=== PATIENT | male | born 1940 | race Caucasian/White ===

== ENCOUNTER 2024-08-31 09:21 | Inpatient (IN) | payer OTHER, SELFPAY ==
[2024-08-31] VITALS (21 sets, daily range): BP systolic 115–167; BP diastolic 48–120; BMI 31.4
--- NOTE | 2024-08-31 07:02 | ED.GENMED ---
History of Present Illness
General
Chief Complaint: Dizziness
Time Seen by Provider: 08/31/24 07:02
History of Present Illness
History of Present Illness:
TIME OF INITIAL ENCOUNTER: 7:08 AM
HPI: The patient went to bed at 12:15 AM this morning. At 5:15 AM, the patient got up to go to the bathroom, he never went to the bathroom but had acute dizziness. This feels similar to the time that he had an acute stroke in 2021. Records show
that he had a cerebellar stroke discharged on baby aspirin and Brilinta at that time. He has no significant headache. He did vomit this morning.
EXAM:
GENERAL: The patient appears uncomfortable and primarily keeps eyes closed
HEENT: Moist oral mucosa
CARDIOVASCULAR: No murmurs, normal heart rate, regular rhythm, No chest wall tenderness
PULMONARY: No respiratory distress, breath sounds are clear and equal
ABDOMEN: Soft with no peritoneal signs, no tenderness
NEUROLOGIC: Excellent strength all extremities, questionable impaired finger-nose on the left
PSYCHIATRIC: Appropriate mental status, normal insight and judgement
EXTREMITIES: Nontender, no edema, moves all extremities equally
SKIN: No rash, no lesions
NUMBER AND COMPLEXITY OF PROBLEMS ADDRESSED AT THE ENCOUNTER
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
� Acute Exacerbation and/or Progression of Chronic Illness: This is an acute problem
� Differential Diagnosis includes: Cerebellar CVA, BPPV, nonspecific vertigo
AMOUNT AND/OR COMPLEXITY OF DATA TO BE REVIEWED AND ANALYZED
� I performed an independent evaluation of and my interpretation is:
EKG: Sinus 79, bifascicular block, left axis deviation
CT: CT head noncontrast shows encephalomalacia of the cerebellum but no acute abnormality, CTA shows more diminutive size of the basilar arteries
X-rays:
Laboratory Studies: Bicarb 19, labs otherwise unremarkable
Other:
� Review of other/old records: I reviewed records. The patient was admitted in February 2022 with an acute cerebellar CVA�discharged on Brilinta and baby aspirin
� Clinical information was obtained by an independent historian: I spoke to EMS prior to arrival and at bedside
� Prescriptions/Medications Considered but not given:
� Further testing considered but not performed:
RISK OF COMPLICATIONS AND/OR MORBIDITY OR MORTALITY OF PATIENT MANAGEMENT
� Social determinants of health affecting care: Lives at home
� Discussion with other providers: Notified Dr. Hill upon patient arrival as we activated stroke alert. No indication for TNK at this time. Hospitalist, Dr. Hebert for admission.
� Escalation of care including admission/observation vs risk of discharge considered: As patient has acute symptoms and history of similar symptoms related to cerebellar CVA, stroke alert was called at 7:10 AM.
ANY OTHER UPDATES:
Dr. Jameson evaluated the patient in the ER. He suspects that his ocular MG may be contributing factor and he is overdue for his IVIG�he states he is going to order IVIG for the patient. Regardless, the patient does not appear well enough to return
home. He is found to be hypothermic and occasionally desats in the emergency department.
Past History
Past History
ED Past Medical History: CVA, HTN and Other (Myasthenia gravis)
ED Past Surgical History: Tonsilectomy and Other (Hernia repair)
Social History
Tobacco: Non-smoker
Phy Exam
Physical Exam
Physical Exam:
See HPI
Sepsis
Sepsis Screening
Sepsis Assessment: Sepsis Ruled Out
Sepsis Screen
Sepsis Screen: Sepsis Ruled Out
Date: 08/31/24
Time: 10:04
Course
Orders/Labs/Results
Orders:
Orders
08/31/24 07:07
CT HEAD STROKE ALERT W/o Cont Urgent
Comment:
Reason For Exam: acute dizziness prior cerebellar CVA
CT HEAD/NECK ANG STROKE ALERT Urgent
Comment:
Reason For Exam: acute dizziness prior cerebellar CVA
08/31/24 07:10
Electrocardiogram (*1) Urgent
Reason for Study: Vertigo / Dizzy
EKG- Treatment ONCE
Ondansetron Injectable [Zofran] 4 mg IV NOW STA
08/31/24 07:18
Complete Blood Count/No Diff Urgent
Comprehensive Metabolic Panel Urgent
Magnesium Urgent
Ondansetron Injectable [Zofran] 4 mg .ROUTE .STK-MED ONE
08/31/24 07:55
Acetaminophen [Tylenol] 325 mg PO DAILY PRN
Diphenhydramine [Benadryl] 25 mg PO DAILY PRN
Immune Globulin Per Pharmacy [Immune Globulin- Pharmacy To Place] 40 gram IV DIRECTED ONE
08/31/24 08:02
Acetaminophen [Tylenol/Feverall] 325 mg RECTAL DAILY PRN
Diphenhydramine [Benadryl] 25 mg IV DAILY PRN
08/31/24 08:13
Lidocaine 2% [Lidocaine Uro-Jet 2%] 1 syringe .ROUTE .STK-MED ONE
08/31/24 08:32
Admit Patient As Directed
Co-Sign Provider:
Level of Care: Inpatient admission
Assign to:: Telemetry
Physician / Group: Kike Montoya
Diagnosis: CVA vs. acute MG
Reason for Telemetry: CVA/TIA
Date to Stop Telemetry: 09/03/24
Time to Stop Telemetry: 11:00
Reason for Hospitalization: Ocular MG, suspected CVA
Expected length of stay greater than two midnights?: Yes
ELOS- Estimated Length of Stay in days: 3
I certify the patient meets the requirements for IP care: Yes
Code Status As Directed
Resuscitation Status: Full Code
Activity As Directed
Activity Level: As Tolerated
Notify MD As Directed
Notify physician if: Bridge Admission orders placed.
Notify attending physician:
-- upon arrival to unit
OR
-- when patient is identified as an ED hold
Vital Signs As Directed
Frequency: Per unit guidelines
O2 Therapy [RESP] Routine
Titrate/Wean O2 to maintain O2 sat greater than (%): 92
08/31/24 08:34
DX Deep Vein Thrombosis Video Routine
08/31/24 08:35
PRN Pain Medication Management As Directed
May give lesser potent ordered pain med per pt: Yes
preference::
Protocol:: Medication orders for pain may be administered in a
manner that supports deferring to patient preference
when the pt is:
- Requesting an ordered lesser potent pain medication.
Least to most potent pain medications are defined
as: acetaminophen < NSAID < tramadol < opioids
(morphine, oxycodone, hydromorphone).
- Requesting a lesser dose of the same medication IF
ORDERED.
- Requesting a less intrusive route of administration
if both routes are prescribed by the provider (PO <
IV).
08/31/24 09:00
Acetaminophen [Tylenol/Feverall] 325 mg RECTAL ONCE ONE
Diphenhydramine [Benadryl] 25 mg IV ONCE ONE
08/31/24 Lunch
NPO
Allow oral meds: No
Allow clear liquids: Sips of Clears
NPO with Ice Chips: Yes
08/31/24 18:00
Enoxaparin Sodium [Lovenox] 30 mg SC QPM
09/03/24 11:00
DC Protocol for Telemetry ONCE
Abnormal Lab Results
08/31/24 08/31/24
07:14 07:18
RBC 4.59 L 10^6/uL
(4.70-6.10)
RDW 15.5 H %
(11.5-14.5)
Chloride 108 H mmol/L
(98-107)
Carbon Dioxide 19 L mmol/L
(22-30)
BUN 26 H mg/dl
(9-20)
Glucose 176 H mg/dl
(70-99)
POC Glucose 157 H mg/dl
(70-99)
08/31/24 07:18
08/31/24 07:18
Vital Signs
Initial and Last Documented VS:
Initial Vital Signs
Pulse Resp BP Pulse Ox
68 28 167/76 100
08/31/24 07:07 08/31/24 07:07 08/31/24 07:07 08/31/24 07:07
Last Documented Vital Signs
Temp Pulse Resp BP Pulse Ox
35.1 C L 64 18 134/65 100
08/31/24 07:09 08/31/24 09:30 08/31/24 09:30 08/31/24 09:30 08/31/24 09:30
*Critical Care Note
Total Time (30-74mins, 75-104mins- exclusive of procedures): Not Applicable
ED Attending Note
-
Portions of this chart may have been created with voice recognition software.� Occasional wrong word or��sound alike� substitutions may have occurred due to the inherent limitations of voice recognition software.
Discharge Plan
Departure
Patient Disposition: Admit
Date of Disposition: 08/31/24
Time of Disposition: 07:55
Presentation/result/management discussed w/ accepting MD/DO: Hospitalist
Discharge Problem:
Dizziness
Interventions
Interventions:
*Risk Screen - Suicide Last Done: 08/31/24 07:41
*Neglect/Abuse Screening Last Done: 08/31/24 07:41
*ED- Fall Risk Assessment Last Done: 08/31/24 07:46
*ED COVID-19 Vaccine History Last Done: 08/31/24 07:56
ED- Neurological Assessment Last Done: 08/31/24 07:41
ED- Cardiac Assessment Last Done: 08/31/24 07:41
ED Swallowing Screen Last Done: 08/31/24 08:50
[2024-08-31] MEDS: ZOFRAN 4 MG IV (07:10)
[2024-08-31 07:15] LABS: Glucose - Point of Care 157 mg/dl (70-99)
[2024-08-31 07:31] LABS: Hematocrit 41.7 % (39.0-52.0); Hemoglobin 13.8 g/dL (13.0-18.0); Mean Corp Hgb Conc. 33.1 g/dL (33.0-37.0); Mean Corpuscular Hgb 30.1 pg (27.0-31.0); Mean Corpuscular Volume 90.8 fL (80.0-94.0); Mean Platelet Volume 9.9 fL (7.4-10.4); Platelet Count 199 10^3/uL (130-400); Red Blood Cell Count 4.59 10^6/uL (4.70-6.10); Red Cell Dist. Width 15.5 % (11.5-14.5); White Blood Cell Count 5.6 10^3/uL (4.8-10.8)
[2024-08-31 07:44] LABS: ALT (SGPT) 25 U/L (0-50); AST (SGOT) 27 U/L (17-59); Alkaline Phosphatase 72 U/L (38-126); Blood Urea Nitrogen 26 mg/dl (9-20); Calcium 9.6 mg/dl (8.4-10.2); Carbon Dioxide 19 mmol/L (22-30); Chloride 108 mmol/L (98-107); Glucose 176 mg/dl (70-99); Potassium 3.5 mmol/L (3.5-5.1); Sodium 140 mmol/L (135-145); Total Protein 6.7 g/dl (6.3-8.2); eGFR > 60.00
--- NOTE | 2024-08-31 07:45 | EDRN ---
see pt care note
--- NOTE | 2024-08-31 09:09 | HPS.HSE ---
Addendum entered and electronically signed by Kike Montoya MD 08/31/24 23:18:
Attending Addendum-
I performed a history and physical exam of the patient and discussed his management with the resident. I reviewed the resident's note and agree with the documented findings and plan of care CC/HPI- Patient presents to ed s/p episode of dizziness,
generalized weakness, and N/V @ 5am. Denies speech disturbance, CP, localized neuro deficits. 'It felt like my previous stroke' Stroke alert called in ED and patient was urgently evaluated by neuro and not deemed a TNK candidate. Dizziness resolved
and weakness improved on interview. Full 12 point ROS reviewed and negative except as documented Exam- vitals reviewed in EMR GEN-NAD Heart RRR lungs clear abd soft LE no edema Neuro AAO x 3 CN 2-12 GI no cerebellar deficits. no weakness illicited
on repetitive motions. generalized weakness.
Plan:
# Acute MG exacerbation
- due for IVIG as OP - neurologist Dr. Jimenez
- not acute CVA
- stat dose of steroids given
- start IVIG x 3 days
- PT OT
- CTA/CT 08/31
1. No acute intracranial abnormality identified.
2. Bilateral chronic cerebellar infarcts.
3. No major branch vessel occlusion, dissection, or aneurysm formation.
4. Approximately 60% stenosis at the origin of the left internal carotid artery.
5. Chronic occlusion left vertebral artery. Unchanged narrow caliber of right vertebral and basilar arteries.
-NPO until passes speech eval
# H/O CVA
- 03/15- was started on Brilinta and asa
- patient still taking Brilinta- DC
- cont full dose asa
- PT OT
# HTN
- cont losartan
# BPH
- cont Flomax and dutasteride
CODE- Full
DVTp- lovenox
Dispo DC home after IVIG back home with
ACP
Patient consented to discuss, was alone, time spent explanation of advance directives, changes in health status, patient�s health care wishes if the patient becomes unable to make health decisions, goals of care, code status, and prognosis- 16
minutes
Time spent coordinating care, review of plan of care with resident, personally reviewed previous records in EMR, med rec, labs, radiology, d/w nursing, family total time documented is exclusive of any additional time listed that was spent in advance
care planning discussion -�76 minutes
Original Note:
Family Physician
-
Family Physician: Eligio Orozco
Chief Complaint
-
Dizziness
History of Present Illness
Boris Prince, 83-year-old male with myasthenia gravis and history of CVAs, felt dizzy this morning. He was in his usual state of health when he went to bed last night. He got up to go to the bathroom at around 0500 but was not able to because of
dizziness. Also experienced nausea and an episode of vomiting. He felt this to be similar to how he felt in 2021 when he had a CVA, so his called 911. Considering his acute symptoms and history of similar symptoms with a previous CVA, stroke
alert was called in the ED. CTA did not show any acute intracranial abnormalities; deemed not a candidate for TNK. Did see more diminutive size of the basilar arteries. Evaluated by neurologist in the ED, who attributed his presentation to known
myasthenia gravis.
He was diagnosed with MG 5 years ago and had been stable on pyridostigmine until 1 year ago, when he started requiring IVIG every month. He was supposed to switch to a different agent, however ran into some insurance and scheduling issues. He last
received IVIG 6 weeks ago, and is overdue.
Medical History
Past Medical History
Past Medical History: Reports Other
Additional Past Medical History:
CVAs, myasthenia gravis, hypertension, BPH, hyperlipidemia
Past Surgical History: Reports Other
Additional Past Surgical History:
tonsillectomy, hernia repair
Social History
Tobacco: Non-smoker
Alcohol: Occasional
Drug: None
Personal:
Living: With Family
Employment: Retired
Family History
Family History: Not pertinent
Allergies / Home Medications
Allergies reflects when Allergies were last updated in [facility].
Home Medications with original date entered in [facility]
Allergy/Medication List:
Allergies
Allergy/AdvReac Type Severity Reaction Status Date / Time
clopidogrel [From Plavix] Allergy Intermediate Rash Verified 08/31/24 07:49
Home Medications
aspirin 81 mg tablet,delayed release 81 mg PO DAILY Blood clot prevention/tx 03/17/22
atorvastatin 80 mg tablet 80 mg PO DAILY High cholesterol 03/17/22
dutasteride 0.5 mg capsule 0.5 mg PO DAILY Urinary issue 03/17/22
losartan 50 mg tablet 50 mg PO DAILY Blood pressure 03/17/22
tamsulosin 0.4 mg capsule 0.4 mg PO DAILY Urinary issue 03/17/22
ticagrelor 90 mg tablet (Brilinta) 90 mg PO BID #60 tabs 03/19/22
ascorbic acid (vitamin C) 500 mg tablet (Vitamin C) 500 mg PO DAILY 08/31/24
immune glob,gamm(IgG)10 %-malt-IgA over 50 mcg/mL intravenous solution (Octagam) 800 ml IV MONTHLY 08/31/24
prednisone 1 mg tablet 4 mg PO DAILY 08/31/24
therapeutic multivitamin 1 tab PO DAILY 08/31/24
turmeric 400 mg capsule 400 mg PO DAILY 08/31/24
Review of Systems
-
A 12 point ROS was completed and negative except as noted: Yes
Constitutional: Reports Fatigue and Chills
Abdomen/GI: Reports Nausea and Vomiting
Neurological: Reports Dizzy (in AM, resolved) and Weakness (facial muscle)
Physical Exam
Vital Signs
Vital Signs
Temp Pulse Resp BP Pulse Ox
95.2 F L 74 19 167/76 100
08/31/24 07:09 08/31/24 07:30 08/31/24 07:30 08/31/24 07:09 08/31/24 07:41
Physical Exam
General: No Apparent Distress, Comfortable and Chills
HEENT: NormoCephalic, Anicteric, Moist mucous membranes and Atraumatic
Respiratory: Clear and Non Labored Respirations
Cardiac: S1/S2 and Regular Rhythm
GI: Soft, Non Tender, Non Distended and No Hepatosplenomegaly
Musculoskeletal: No Clubbing, No Cyanosis and No Edema
Skin: Warm, Dry and IV/Catheter Site
Neuro: Awake, Alert, Oriented and Other (ptosis; variable muscle weakness)
Hematologic/Lymphatic: No Lymphadenopathy
Psych: Calm and Intact Judgment/Insight
Laboratory Results
-
08/31/24 07:18
08/31/24 07:18
Laboratory Results
Total Bilirubin 1.0 mg/dl (0.2-1.3) 08/31/24 07:18
AST 27 U/L (17-59) 08/31/24 07:18
ALT 25 U/L (0-50) 08/31/24 07:18
Alkaline Phosphatase 72 U/L (38-126) 08/31/24 07:18
Impression/Plan
-
Myasthenia gravis with acute exacerbation
- Overdue for IVIG; last infusion 6 weeks ago.
- IVIG today.
- Status-post IV dexamethasone 8 mg.
- Continue prednisone.
- NPO while weakness persists, and pending speech eval.
- Ondansetron for nausea.
History of cerebrovascular accidents
- CT/CTA with no acute abnormalities.
- On aspirin and ticagrelor; can discontinue the latter (outside the therapeutic recommendation time).
- ST/PT/OT consultation.
Left internal carotid artery stenosis
Chronic occlusion left vertebral artery
- Noted on CTA.
- Chronic and asymptomatic.
- Continue aspirin and ticagrelor.
Primary hypertension
- Continue losartan.
Benign prostatic hyperplasia
- Continue dutasteride.
Hyperlipidemia
- Continue atorvastatin.
Thromboprophylaxis
- Enoxaparin.
Code status
- Full.
[2024-08-31] MEDS: TYLENOL/FEVERALL 325 MG RECTAL (09:10)
--- NOTE | 2024-08-31 09:22 | CON.NEURO ---
Neuro Assessment/Plan
Assessment
Head CT imgs rev'd, bilat cerebellar infarcts, unchanged
CTA head/neck L ICA origin 60% stenosis, left vertebral occlusion, right vert/basilar stenosis
suspected recrudescence of prior stroke in the setting of myasthenia exacerbation.
overdue for IVIG
Plan
MG exacerbation, overdue for IVIG, will give 0.4 g/kg x3 days to make up for thie missed dose
premed tylenol rectal, benadryl IV until he can take PO
doubt new stroke. left vert occlusion is chronic, right vert is stable; continue ASA 81, Lipitor 80. He probably doesn't need Brillinta anymore; Dr Figueroa's original note from 2021 said 6 months which was reasonable.
Left carotid, 60% asymptomatic, no indication for surgical tx
Consultation
Order
Date of Consultation: 08/31/24
Requesting Provider: Dudley Boyer
Reason for Consult: Stroke alert
Subjective/Objective
Subjective Data
Date of Service: August 31, 2024
He is an 83 year old man, history of myasthenia gravis, 2x cerebellar stroke in 2021, presenting with dizziness, nausea, vomiting. Similar symptoms as with his prior stroke.
Myasthenia gravis was on IVIG 2 days every month; he is 2 weeks overdue. was planning to switch to [employer] pending insurance auth.
+generalized weakness. initially admitted to double vision, then denied. no vision loss, hearing change, or tinnitus
Objective Data
Vital Signs
Temp Pulse Resp BP Pulse Ox
35.1 C L 74 19 167/76 100
08/31/24 07:09 08/31/24 07:30 08/31/24 07:30 08/31/24 07:09 08/31/24 07:41
Lab Results
08/31/24 07:18
08/31/24 07:18
Sodium 140 mmol/L (135-145) 08/31/24 07:18
Potassium 3.5 mmol/L (3.5-5.1) 08/31/24 07:18
BUN 26 mg/dl (9-20) H 08/31/24 07:18
Glucose 176 mg/dl (70-99) H 08/31/24 07:18
Calcium 9.6 mg/dl (8.4-10.2) 08/31/24 07:18
Patient Allergies
clopidogrel [From Plavix] Allergy (Intermediate, Verified 08/31/24 07:49)
Rash
Physical Exam
-
tachypneic
Awake and alert
VFF, EOMI, face symmetric
full strength b/l UE, 4/5 b/l LE, decreased tone
sensation intact to touch
Medications
-
Active Medications
Generic Name Dose Route Start Last Admin
Trade Name Freq PRN Reason Stop Dose Admin
Acetaminophen 325 mg 08/31/24 07:55
Acetaminophen 325 Mg Tablet PO 09/28/24 07:59
DAILY PRN
IVIG pre medicate
Acetaminophen 325 mg 08/31/24 08:02
Acetaminophen 325 Mg Rectal Suppository RECTAL 09/28/24 08:59
DAILY PRN
IVIG pre medicate
Diphenhydramine HCl 25 mg 08/31/24 07:55
Diphenhydramine 25 Mg Capsule PO 09/28/24 07:59
DAILY PRN
IVIG pre medicate
Diphenhydramine HCl 25 mg 08/31/24 08:02
Diphenhydramine 50 Mg/Ml 1 Ml Vial IV 09/28/24 08:59
DAILY PRN
IVIG pre medicate
Enoxaparin Sodium 30 mg 08/31/24 18:00
Enoxaparin Sodium 30 Mg/0.3 Ml Syringe SC 09/28/24 17:59
QPM SONNY
Immune Globulin 40 gram 08/31/24 07:55
Immune Globulin (Calculator Uses I[facility]) - Pharmacy To Place Order IV 08/31/24 07:56
DIRECTED ONE
Home Medications
�Medication �Instructions �Recorded
aspirin 81 mg tablet,delayed 81 mg PO DAILY Blood clot 03/17/22
release prevention/tx
atorvastatin 80 mg tablet 80 mg PO DAILY High cholesterol 03/17/22
dutasteride 0.5 mg capsule 0.5 mg PO DAILY Urinary issue 03/17/22
losartan 50 mg tablet 50 mg PO DAILY Blood pressure 03/17/22
tamsulosin 0.4 mg capsule 0.4 mg PO DAILY Urinary issue 03/17/22
ticagrelor 90 mg tablet (Brilinta) 90 mg PO BID #60 tabs 03/19/22
ascorbic acid (vitamin C) 500 mg 500 mg PO DAILY 08/31/24
tablet (Vitamin C)
immune glob,gamm(IgG)10 %-malt-IgA 800 ml IV MONTHLY 08/31/24
over 50 mcg/mL intravenous
solution (Octagam)
prednisone 1 mg tablet 4 mg PO DAILY 08/31/24
therapeutic multivitamin 1 tab PO DAILY 08/31/24
turmeric 400 mg capsule 400 mg PO DAILY 08/31/24
[2024-08-31] MEDS: GAMMAGARD 200 IV ×2 (09:53→12:16)
[2024-08-31] MEDS: BENADRYL 25 MG IV (09:56)
[2024-08-31] MEDS: DECADRON 8 MG IV (10:35)
[2024-08-31 12:10] LABS: COVID-19 Antigen Negative (Negative)
--- NOTE | 2024-08-31 15:57 | PTOTSP ---
Speech Therapy Evaluation:
Pt presents with functional oropharyngeal swallow at bedside, however has acute on chronic risk factors of dysphagia (hx CVA, hx of MG, acute exacerbation of MG). Pt currently s/p IVIG received in ED. No overt s/sx of aspiration across PO trials. Pt
passed 3oz swallow screen. WBC WNL. No chest imaging completed thus far.
Recommend:
1. Initiate IDDSI Level 7 (regular) solids and thin liquids
2. Medications as tolerated
3. General aspiration precautions
4. FINANCIAL SALES MANAGER to follow - likely brief
--- NOTE | 2024-08-31 16:59 | PTCARENOTE ---
Pt received from ER via stretcher, accompanied by ER staff. Pt AAO x3, TODD well, transferred to to bed with assist x1, no c/o weakness/dizziness. pt stated he feels 'so much better' after IVIG infusion in ER. NIHSS 0. VSS. Placed on
telemetry:NSR with [facility]. On room air- pulse ox 99%, no SOB noted. Abd large, soft, pt passed swallow eval; to start regular diet. Pt DTV; states he will void in urinal. Afebrile; skin W/D/I. Oriented to 4[place], currently resting comfortably.
Will continue to monitor.
[2024-08-31] MEDS: LOVENOX 40 MG SC (17:49)
[2024-09-01] VITALS (14 sets, daily range): BP systolic 98–153; BP diastolic 59–84; PULSE 76; O2SAT 98; BMI 31.2
--- NOTE | 2024-09-01 04:00 | PTCARENOTE ---
Throughout shift pt has stated that symptoms bringing him to hosp no longer present. OOB w/o any dizzines. No h/a or visual disturbance.
[2024-09-01 06:35] LABS: Hematocrit 35.9 % (39.0-52.0); Hemoglobin 12.3 g/dL (13.0-18.0); Mean Corp Hgb Conc. 34.3 g/dL (33.0-37.0); Mean Corpuscular Hgb 31.5 pg (27.0-31.0); Mean Corpuscular Volume 91.8 fL (80.0-94.0); Mean Platelet Volume 10.8 fL (7.4-10.4); Platelet Count 201 10^3/uL (130-400); Red Blood Cell Count 3.91 10^6/uL (4.70-6.10); Red Cell Dist. Width 15.8 % (11.5-14.5); White Blood Cell Count 8.4 10^3/uL (4.8-10.8)
--- NOTE | 2024-09-01 07:32 | W.PN.HOSP.TC ---
Addendum entered and electronically signed by Kike Montoya MD 09/01/24 23:04:
Attending Addendum-I saw and evaluated the patient. I reviewed the resident�s note and agree with findings and plan as documented in the resident�s note. Sub: Feels greatly improved with strength and energy. No dizziness or PAN. Full 12 point ROS
reviewed and negative except as documented Exam- vitals reviewed in EMR GEN-NAD Heart RRR lungs clear abd soft LE no edema Neuro AAO x 3 CN 2-12 GI, no cerebellar deficits. MS /
Plan:
# Acute MG exacerbation
- not acute CVA
- stat dose of steroids given in ED
- cont IVIG #/
- PT OT
- CTA/CT 08/31
1. No acute intracranial abnormality identified.
2. Bilateral chronic cerebellar infarcts.
3. No major branch vessel occlusion, dissection, or aneurysm formation.
4. Approximately 60% stenosis at the origin of the left internal carotid artery.
5. Chronic occlusion left vertebral artery. Unchanged narrow caliber of right vertebral and basilar arteries.
- flori diet
# LICA 60% sten and chronic left vert artery occlusion
- CTM
- cont asa brillinta atorvastatin
# H/O CVA
- 03/15- was started on Brilinta and asa
- had recurrent CVA when taken of Brilinta
- cont full dose asa,Brilinta, and atorvastatin indefinitely
- PT OT
# HTN
- cont losartan
# BPH
- cont Flomax and dutasteride
CODE- Full
DVTp- lovenox
Dispo DC home after IVIG in am back home with
Time spent coordinating care, review of plan of care with resident, personally reviewed records in EMR, med rec, consults, notes, labs, radiology, d/w nursing � 52 mins
Original Note:
Today's Communication/Plan
-
* IVIG, day 2.
* Discharge home tomorrow.
Assessment / Plan
Assessment / Plan
Assessment
Boris Prince, 83-year-old male with myasthenia gravis and history of CVAs, was admitted to the hospital in the morning of 08-31-24. He was in his usual state of health when he went to bed the night before. He got up to go to the bathroom at
around 0500 but was not able to because of dizziness. Also experienced nausea and an episode of vomiting. He felt this to be similar to how he felt in 2021 when he had a CVA, so his called 911. Considering his acute symptoms and history of
similar symptoms with a previous CVA, stroke alert was called in the ED. CTA did not show any acute intracranial abnormalities; deemed not a candidate for TNK. Imaging did see more diminutive size of the basilar arteries. Evaluated by neurologist in
the ED, who attributed his presentation to known myasthenia gravis. He was diagnosed with MG 5 years ago and had been stable on pyridostigmine until 1 year ago, when he started requiring IVIG every month. He was supposed to switch to rozanolixizumab
(Rystiggo), however ran into insurance and scheduling issues. He last received IVIG 6 weeks ago, and was overdue.
Impression and plan
Myasthenia gravis with acute exacerbation
- 3 rounds of IVIG from 08-31-24 to 09-02-24.
- Status-post IV dexamethasone 8 mg in the ED.
- Continue prednisone.
- Passed speech evaluation; okay to eat and have oral medications.
- Ondansetron for nausea.
History of cerebrovascular accidents - 2021 and 2022
- CT/CTA with no acute abnormalities.
- On aspirin and ticagrelor.
- He had the second CVA 2 weeks after completing the course of ticagrelor.
- As discussed with Dr. Figueroa, neurology, back then, he is to be on ticagrelor indefinitely.
- ST/PT/OT consultation.
Left internal carotid artery stenosis
Chronic occlusion left vertebral artery
- Noted on CTA.
- Chronic and asymptomatic.
- Continue aspirin and ticagrelor per above.
Primary hypertension
- Normotensive and asymptomatic.
- Continue losartan.
Benign prostatic hyperplasia
- Continue dutasteride and tamsulosin.
Hyperlipidemia
- Continue atorvastatin.
Thromboprophylaxis
- Enoxaparin.
Code status
- Full.
Anticipated Discharge: 24 - 48 hours
Subjective/Interval History
-
Date of Service: September 01, 2024
Feeling significantly better after IVIG yesterday. No medical complaints today.
Objective Data
-
Labs:
Laboratory Results
09/01/24
05:30
WBC 8.4
Hgb 12.3 L
Hct 35.9 L
Plt Count 201
Sodium Pending
Potassium Pending
Chloride Pending
Carbon Dioxide Pending
BUN Pending
Creatinine Pending
Glucose Pending
Calcium Pending
Total Bilirubin Pending
AST Pending
ALT Pending
Alkaline Phosphatase Pending
Vital Signs:
Vital Signs
Temp Pulse Resp BP Pulse Ox
98.2 F 74 20 117/59 97
09/01/24 03:13 09/01/24 03:13 09/01/24 03:13 09/01/24 03:13 09/01/24 03:13
I&O
08/31/24 09/01/24 09/02/24
06:59 06:59 06:59
Intake Total 730 / 730
Output Total 725 / 725
Balance 5 / 5
Review of Systems
-
History Source: Patient
Constitutional: Reports No Symptoms
EENT: Reports No Symptoms Reported
Respiratory: Reports No Symptoms
Cardiac: Reports No Symptoms
Abdomen/GI: Reports No Symptoms
Genitourinary: Reports No Symptoms
Musculoskeletal: Reports No Symptoms
Skin: Reports No Symptoms
Neuro: Reports No Symptoms
Endocrine: Reports No Symptoms
Hematologic / Lymphatic: Reports No Symptoms
Allergy / Immunology: Reports No Symptoms
Physical Exam
-
General: No Apparent Distress and Comfortable
HEENT: Normocephalic, Atraumatic, Moist Mucous Membranes, Anicteric and No Ptosis
Respiratory: Clear to Auscultation and Non Labored Respirations
Cardiac: Regular Rhythm and S1/S2
GI: Soft, Nontender and Nondistended
Genito-urinary: No Costovertebral Tender
Musculoskeletal: No Clubbing, No Cyanosis and No Edema
Skin: Warm, Dry and IV Access / Catheter Site
Neuro: Awake, Alert, Oriented, No Motor Deficits and No Sensory Deficits
Hematologic / Lymphatic: No Lymphadenopathy
Psych: Calm
[2024-09-01 07:35] LABS: ALT (SGPT) 21 U/L (0-50); AST (SGOT) 25 U/L (17-59); Albumin 3.3 g/dl (3.5-5.0); Alkaline Phosphatase 55 U/L (38-126); Blood Urea Nitrogen 28 mg/dl (9-20); Calcium 8.9 mg/dl (8.4-10.2); Carbon Dioxide 21 mmol/L (22-30); Chloride 107 mmol/L (98-107); Estimated Creatinine Clearance 54 ml/min; Glucose 100 mg/dl (70-99); Potassium 4.2 mmol/L (3.5-5.1); Sodium 136 mmol/L (135-145); Total Bilirubin 0.8 mg/dl (0.2-1.3); Total Protein 6.3 g/dl (6.3-8.2); eGFR > 60.00
[2024-09-01] MEDS: DELTASONE 4 MG PO (10:03)
[2024-09-01] MEDS: LIPITOR 80 MG PO (10:03)
[2024-09-01] MEDS: ASPIR LOW (ENTERIC COATED) 81 MG PO (10:04)
[2024-09-01] MEDS: COZAAR 50 MG PO (10:04)
[2024-09-01] MEDS: BRILINTA 90 MG PO ×2 (10:05→19:39)
[2024-09-01] MEDS: BENADRYL 25 MG PO (10:06)
[2024-09-01] MEDS: TYLENOL 325 MG PO (10:06)
[2024-09-01] MEDS: GAMMAGARD 200 IV ×2 (10:56→13:09)
--- NOTE | 2024-09-01 16:31 | CM ---
Alert awake oriented patient who lives with his Batsheva oliver lives in a 2 story home with 1 step to enter and bed and bathroom on first floor. He is independent in driving and in all activities of daily living.He was offered VN he declined
need.He uses a cane .
No VN hx / No SNF history
Pharmacy [facility]
PCP DR Holden
PLAN Home Declined VN
[2024-09-01] MEDS: LOVENOX 40 MG SC (18:13)
--- NOTE | 2024-09-01 18:52 | W.PN.NEURO.1 ---
Today's Communication / Plan
-
d/c home after IVIG tomorrow
Neuro Assessment/Plan
Assessment
Head CT imgs rev'd, bilat cerebellar infarcts, unchanged
CTA head/neck L ICA origin 60% stenosis, left vertebral occlusion, right vert/basilar stenosis
suspected recrudescence of prior stroke in the setting of myasthenia exacerbation.
overdue for IVIG
Plan
MG exacerbation, overdue for IVIG, will give 0.4 g/kg x3 days to make up for thie missed dose
premed tylenol/benadryl
doubt new stroke. left vert occlusion is chronic, right vert is stable; continue ASA 81, Lipitor 80. He probably doesn't need Brillinta anymore; Dr Figueroa's original note from 2021 said 6 months which was reasonable.
Left carotid, 60% asymptomatic, no indication for surgical tx
Subjective/Objective
Subjective Data
Date of Service: September 01, 2024
feels much better today after IVIG.
Objective Data
Vital Signs
Temp Pulse Resp BP Pulse Ox
36.6 C 58 16 119/64 96
09/01/24 15:55 09/01/24 15:55 09/01/24 15:55 09/01/24 15:55 09/01/24 15:55
Lab Results
09/01/24 05:30
09/01/24 05:30
Sodium 136 mmol/L (135-145) 09/01/24 05:30
Potassium 4.2 mmol/L (3.5-5.1) 09/01/24 05:30
BUN 28 mg/dl (9-20) H 09/01/24 05:30
Glucose 100 mg/dl (70-99) H 09/01/24 05:30
Calcium 8.9 mg/dl (8.4-10.2) 09/01/24 05:30
Patient Allergies
clopidogrel [From Plavix] Allergy (Intermediate, Verified 08/31/24 15:32)
Rash
[2024-09-01] MEDS: FLOMAX 0.4 MG PO (21:08)
[2024-09-01] MEDS: PROSCAR 5 MG PO (21:09)
[2024-09-02] VITALS (9 sets, daily range): BP systolic 119–158; BP diastolic 63–93; BMI 31.0
[2024-09-02 06:24] LABS: Hematocrit 37.7 % (39.0-52.0); Hemoglobin 12.3 g/dL (13.0-18.0); Mean Corp Hgb Conc. 32.6 g/dL (33.0-37.0); Mean Corpuscular Hgb 30.2 pg (27.0-31.0); Mean Corpuscular Volume 92.6 fL (80.0-94.0); Mean Platelet Volume 10.1 fL (7.4-10.4); Platelet Count 174 10^3/uL (130-400); Red Blood Cell Count 4.07 10^6/uL (4.70-6.10); Red Cell Dist. Width 15.8 % (11.5-14.5)
[2024-09-02 06:52] LABS: ALT (SGPT) 22 U/L (0-50); AST (SGOT) 27 U/L (17-59); Albumin 3.3 g/dl (3.5-5.0); Alkaline Phosphatase 56 U/L (38-126); Blood Urea Nitrogen 31 mg/dl (9-20); Calcium 8.5 mg/dl (8.4-10.2); Carbon Dioxide 22 mmol/L (22-30); Chloride 108 mmol/L (98-107); Estimated Creatinine Clearance 54 ml/min; Glucose 95 mg/dl (70-99); Potassium 4.1 mmol/L (3.5-5.1); Sodium 136 mmol/L (135-145); Total Bilirubin 0.7 mg/dl (0.2-1.3); Total Protein 6.8 g/dl (6.3-8.2); eGFR > 60.00
--- NOTE | 2024-09-02 08:16 | W.PN.HOSP.TC ---
Addendum entered and electronically signed by Kike Montoya MD 09/03/24 00:28:
Attending Addendum-I saw and evaluated the patient. I reviewed the resident�s note and agree with findings and plan as documented in the resident�s note. Sub: Ready to go home No dizziness or PAN. Full 12 point ROS reviewed and negative except as
documented Exam- vitals reviewed in EMR GEN-NAD Heart RRR lungs clear abd soft LE no edema Neuro AAO x 3 CN 2-12 GI, no cerebellar deficits. MS 10/26
Plan:
# Acute MG exacerbation
- not acute CVA
- stat dose of steroids given in ED
- conmpletedIVIG #08/24
- CTA/CT 08/31
1. No acute intracranial abnormality identified.
2. Bilateral chronic cerebellar infarcts.
3. No major branch vessel occlusion, dissection, or aneurysm formation.
4. Approximately 60% stenosis at the origin of the left internal carotid artery.
5. Chronic occlusion left vertebral artery. Unchanged narrow caliber of right vertebral and basilar arteries.
- flori diet
- DC home
# LICA 60% sten and chronic left vert artery occlusion
- CTM
- cont asa brillinta atorvastatin
# H/O CVA
- 03/15- was started on Brilinta and asa
- had recurrent CVA when taken of Brilinta
- cont full dose asa,Brilinta, and atorvastatin indefinitely
- PT OT
# HTN
- cont losartan
# BPH
- cont Flomax and dutasteride
CODE- Full
DVTp- lovenox
Dispo DC home with
Time spent coordinating care, DC planning, review of DC plan of care with resident, transition of care, review of records, med rec/scripts sent electronically, consults, notes, d/w consultants, nursing, family, and CM� 32 mins
Original Note:
Today's Communication/Plan
-
* Anticipated discharge today.
Assessment / Plan
Assessment / Plan
Assessment
Boris Prince, 83-year-old male with myasthenia gravis and history of CVAs, was admitted to the hospital in the morning of 08-31-24. He was in his usual state of health when he went to bed the night before. He got up to go to the bathroom at
around 0500 but was not able to because of dizziness. Also experienced nausea and an episode of vomiting. He felt this to be similar to how he felt in 2021 when he had a CVA, so his called 911. Considering his acute symptoms and history of
similar symptoms with a previous CVA, stroke alert was called in the ED. CTA did not show any acute intracranial abnormalities; deemed not a candidate for TNK. Imaging did see more diminutive size of the basilar arteries. Evaluated by neurologist in
the ED, who attributed his presentation to known myasthenia gravis. He was diagnosed with MG 5 years ago and had been stable on pyridostigmine until 1 year ago, when he started requiring IVIG every month. He was supposed to switch to rozanolixizumab
(Rystiggo), however ran into insurance and scheduling issues. He last received IVIG 6 weeks ago, and was overdue.
Impression and plan
Myasthenia gravis with acute exacerbation
- 3 rounds of IVIG from 08-31-24 to 09-02-24.
- Status-post IV dexamethasone 8 mg in the ED.
- Continue prednisone.
- Passed speech evaluation; okay to eat and have oral medications.
- Ondansetron for nausea.
History of cerebrovascular accidents - 2021 and 2022
- CT/CTA with no acute abnormalities.
- On aspirin and ticagrelor.
- He had the second CVA 2 weeks after completing the course of ticagrelor.
- As discussed with Dr. Figueroa, neurology, back then, he is to be on ticagrelor indefinitely.
- ST/PT/OT consultation.
Left internal carotid artery stenosis
Chronic occlusion left vertebral artery
- Noted on CTA.
- Chronic and asymptomatic.
- Continue aspirin and ticagrelor per above.
Primary hypertension
- Normotensive and asymptomatic.
- Continue losartan.
Benign prostatic hyperplasia
- Continue dutasteride and tamsulosin.
Hyperlipidemia
- Continue atorvastatin.
Thromboprophylaxis
- Enoxaparin.
Code status
- Full.
Anticipated Discharge: Today
Subjective/Interval History
-
Date of Service: September 02, 2024
Stable overnight. No new symptoms or concerns.
Objective Data
-
Labs:
Laboratory Results
09/02/24
05:47
WBC 5.0
Hgb 12.3 L
Hct 37.7 L
Plt Count 174
Sodium 136
Potassium 4.1
Chloride 108 H
Carbon Dioxide 22
BUN 31 H
Creatinine 1.0
Glucose 95
Calcium 8.5
Total Bilirubin 0.7
AST 27
ALT 22
Alkaline Phosphatase 56
Vital Signs:
Vital Signs
Temp Pulse Resp BP Pulse Ox
97.6 F 63 18 151/80 100
09/02/24 08:03 09/02/24 08:03 09/02/24 08:03 09/02/24 08:03 09/02/24 08:03
I&O
09/01/24 09/02/24 09/03/24
06:59 06:59 06:59
Intake Total 730 / 730 1080 / 1080
Output Total 725 / 725
Balance 1080 / 1080
Review of Systems
-
History Source: Patient
Constitutional: Reports No Symptoms
EENT: Reports No Symptoms Reported
Respiratory: Reports No Symptoms
Cardiac: Reports No Symptoms
Abdomen/GI: Reports No Symptoms
Genitourinary: Reports No Symptoms
Musculoskeletal: Reports No Symptoms
Skin: Reports No Symptoms
Neuro: Reports No Symptoms
Endocrine: Reports No Symptoms
Hematologic / Lymphatic: Reports No Symptoms
Allergy / Immunology: Reports No Symptoms
Physical Exam
-
General: No Apparent Distress and Comfortable
HEENT: Normocephalic, Atraumatic, Moist Mucous Membranes, Anicteric and No Ptosis
Respiratory: Clear to Auscultation and Non Labored Respirations
Cardiac: Regular Rhythm and S1/S2
GI: Soft, Nontender and Nondistended
Genito-urinary: No Costovertebral Tender
Musculoskeletal: No Clubbing, No Cyanosis and No Edema
Skin: Warm, Dry and IV Access / Catheter Site
Neuro: Awake, Alert, Oriented, No Motor Deficits and No Sensory Deficits
Hematologic / Lymphatic: No Lymphadenopathy
Psych: Calm
[2024-09-02] MEDS: BRILINTA 90 MG PO (09:28)
[2024-09-02] MEDS: COZAAR 50 MG PO (09:28)
[2024-09-02] MEDS: ASPIR LOW (ENTERIC COATED) 81 MG PO (09:28)
[2024-09-02] MEDS: LIPITOR 80 MG PO (09:28)
[2024-09-02] MEDS: DELTASONE 4 MG PO (09:28)
[2024-09-02] MEDS: TYLENOL 325 MG PO (09:29)
[2024-09-02] MEDS: BENADRYL 25 MG PO (09:29)
--- NOTE | 2024-09-02 09:39 | W.DCSUMMARY ---
Addendum entered and electronically signed by Kike Montoya MD 09/03/24 00:28:
Read, reviewed, and agree. See same day progress note for additional details.
Lizandro Montoya MD
Original Note:
Documented by User: August Morales MD, Resident 09/02/24 12:46
Discharge Summary
Discharge Data
Date of Admission: 08/31/24
Date of Discharge: 09/02/24
-
Pending Results: No
Hospital Course
Primary discharge diagnosis
* Myasthenia gravis with acute exacerbation
Secondary discharge diagnoses
- History of cerebrovascular accidents - 2021 and 2022
- Left internal carotid artery stenosis
- Chronic occlusion left vertebral artery
- Primary hypertension
- Benign prostatic hyperplasia
- Hyperlipidemia
Hospital course
Boris Prince, 83-year-old male with myasthenia gravis and history of CVAs, was admitted to the hospital in the morning of 08-31-24 for dizziness, weakness, nausea and vomiting. He felt this to be similar to how he felt in 2021 when he had a CVA,
so his called 911. CTA in the ED did not show any acute intracranial abnormalities. Evaluated by neurologist in the ED, who attributed his presentation to known myasthenia gravis. He had last received IVIG 6 weeks ago, and was overdue. He got 1
dose of dexamethasone and IVIG in the ED, and felt remarkably better. Admitted for 2 additional doses of IVIG, which he completed without complications or adverse effects. Vitals and blood work remained stable and his symptoms remained in remission
after the first round of IVIG. Scheduled to start rozanolixizumab 4 weeks from now. Follow-up with primary in under 1 week, and neurology in 4-6 weeks.
Discharge Plan
-
Patient Disposition: Home (Routine Discharge)
Discharge Diagnosis/Procedures: Myasthenia gravis with acute exacerbation
Condition: Good
Diet: Low Fat and Low Cholesterol
Activity: No restrictions
Driving Restrictions: As prior to admission
Bathing Restrictions: None
Instructions: Myasthenia gravis
Referrals:
Ian Jimenez MD [Active] - in four to six weeks
Eligio Orozco MD [Family Provider] - in less than 1 week
Prescriptions:
Continued
losartan 50 mg tablet
50 mg PO DAILY
atorvastatin 80 mg tablet
80 mg PO DAILY
aspirin 81 mg Tablet,Delayed Release (Dr/Ec)
81 mg PO DAILY
tamsulosin 0.4 mg capsule
0.4 mg PO HS
dutasteride 0.5 mg capsule
0.5 mg PO HS
therapeutic multivitamin Tablet
1 tab PO DAILY
ascorbic acid (vitamin C) [Vitamin C] 500 mg Tablet
500 mg PO DAILY
turmeric 400 mg Capsule
400 mg PO DAILY
prednisone 1 mg Tablet
4 mg PO DAILY
Octagam 10 % solution
800 ml IV MONTHLY
Patient Comments:
dose given in ER 08/31
Brilinta 90 mg Tablet
90 mg PO BID Qty: 60 5RF
Discharge Orders:
Discharge Patient (As Directed); Ordered 09/02/24
Ordered By: August Morales
Discharge Date and Time
Discharge Date/Time: 09/02/24 14:53
Print Language: CYMRO

Documented by User: Kike Montoya MD 09/03/24 00:26
Discharge Summary
Discharge Data
Date of Admission: 08/31/24
Date of Discharge: 09/03/24
Discharge Plan
-
Patient Disposition: Home (Routine Discharge)
Discharge Diagnosis/Procedures: Myasthenia gravis with acute exacerbation
Condition: Good
Diet: Low Fat and Low Cholesterol
Activity: No restrictions
Driving Restrictions: As prior to admission
Bathing Restrictions: None
Instructions: Myasthenia gravis
Referrals:
Ian Jimenez MD [Active] - in four to six weeks
Eligio Orozco MD [Family Provider] - in less than 1 week
Prescriptions:
Continued
losartan 50 mg tablet
50 mg PO DAILY
atorvastatin 80 mg tablet
80 mg PO DAILY
aspirin 81 mg Tablet,Delayed Release (Dr/Ec)
81 mg PO DAILY
tamsulosin 0.4 mg capsule
0.4 mg PO HS
dutasteride 0.5 mg capsule
0.5 mg PO HS
therapeutic multivitamin Tablet
1 tab PO DAILY
ascorbic acid (vitamin C) [Vitamin C] 500 mg Tablet
500 mg PO DAILY
turmeric 400 mg Capsule
400 mg PO DAILY
prednisone 1 mg Tablet
4 mg PO DAILY
Octagam 10 % solution
800 ml IV MONTHLY
Patient Comments:
dose given in ER 08/31
Brilinta 90 mg Tablet
90 mg PO BID Qty: 60 5RF
Discharge Orders:
Discharge Patient (As Directed); Ordered 09/02/24
Ordered By: August Morales
Discharge Date and Time
Discharge Date/Time: 09/02/24 14:53
Print Language: CYMRO
[2024-09-02] MEDS: GAMMAGARD 200 IV ×2 (10:27→12:35)
[2024-09-02] MEDS: FLUSH (NSS) 2 FLUSH IV (10:27)
--- NOTE | 2024-09-02 14:39 | CM ---
MD entered order for discharge.
Pt said he was ready for discharge.
He said his Batsheva will drive him home.
Offered VN he declined need.
PLAN Home no needs
== END 2024-09-02 14:53 | disposition home or self-care (01) | DRG 57 ==
LOC: 4 EAST ACU 09:21
PROVIDERS: Student in an Organized Health Care Education/Training Program; ADMITTING PHYSICIAN Family Medicine; CONSULT PHYSICIAN Psychiatry & Neurology Clinical Neurophysiology; EMERGENCY PHYSICIAN Emergency Medicine; FAMILY PHYSICIAN Family Medicine
DX: G70.01 Myasthenia gravis with (acute) exacerbation (principal); Z86.73 Personal history of transient ischemic attack (TIA), and cerebral infarction without residual deficits; I10 Essential (primary) hypertension; N40.0 Benign prostatic hyperplasia without lower urinary tract symptoms; E78.5 Hyperlipidemia, unspecified; I65.22 Occlusion and stenosis of left carotid artery; I65.02 Occlusion and stenosis of left vertebral artery; Z11.52 Encounter for screening for COVID-19
CPT/HCPCS: 70450; 70496; 70498; 80053; 82962; 83735; 85027; 87502; 87811; 92610; 93005; 96374; 97161; 97166; 99285; J1569; Q9967

== ENCOUNTER 2025-01-09 06:04 | Emergency (ER) | payer OTHER, SELFPAY ==
[2025-01-09 06:10] VITALS: BP 141/67
[2025-01-09 06:17] LABS: Glucose - Point of Care 143 mg/dl (70-99)
--- NOTE | 2025-01-09 06:30 | ED.GENMED ---
History of Present Illness
General
Chief Complaint: Dizziness
Time Seen by Provider: 01/09/25 06:10
History of Present Illness
History of Present Illness:
84-year-old male with history of myasthenia gravis on Rozanoxizumab and history of cerebellar stroke presenting to the emergency department for dizziness. Patient reports that he woke up around 3 AM this morning to go to the bathroom and felt
dizzy. He notes that the dizziness is prominent anytime that he opens his eyes. Notes very similar symptoms in 2021, which time he was diagnosed with a stroke. Patient had also been seen in August for similar symptoms, which was thought to be
secondary to his myasthenia gravis. Patient had previously been on IVIG, and has since been switched to the Rozanoxizumab. His last dose was on . He also is on 4 mg of prednisone daily. He denies weakness or numbness to his extremities.
He reports that he felt normal when he went to bed at midnight. He was administered Valium and Zofran by medics. Denies chest pain or difficulty breathing. Denies changes in his vision. Denies additional acute medical complaints
Past History
Past History
ED Past Medical History: CVA, HTN and Other (Myasthenia gravis)
ED Past Surgical History: Tonsilectomy and Other (Hernia repair)
Social History
Tobacco: Non-smoker
Phy Exam
Physical Exam
Physical Exam:
General: Well-appearing, no clinical signs of dehydration, nontoxic and in no acute distress
HEENT: protecting airway, pupils equal and reactive. Horizontal nystagmus bilaterally. When looking toward the left, appears to have a lag of the left eye
Neck: appears supple
CV: Normal heart rate, regular rhythm
Resp: No accessory muscle use, no increased work of breathing, lungs clear to auscultation bilaterally
Abd: Soft and non-distended, no tenderness to palpation
Extremities: No deformities, no swelling
Neuro: alert, no focal neurologic deficit
: deferred
Rectal: deferred
Psych: Normal affect
Skin: Intact
Scores
NIH Stroke Score
Level of Consciousness: 0 - Alert
LOC Questions: 0-Answers both correctly
LOC Commands: 0-Performs both correctly
Best Horizontal Gaze: 0-Normal
Visual Napoles: 0=Normal, no visual loss
Facial Palsy: 0=Normal, symmetrical
Motor - Right Arm: 0=No drift 10 seconds
Motor - Left Arm: 0=No drift 10 seconds
Motor - Right Le-No drift 5 seconds
Motor - Left Le-No drift 5 seconds
Limb Ataxia: 0-Absent
Sensation: 0-Normal
Best Language: 0-No aphasia
Dysarthria: 0-Normal
Extinction and Inattention: 0-No abnormality
NIH Total Score:: 0
Course
Orders/Labs/Results
Orders:
Orders
01/09/25 06:15
Electrocardiogram (*1) Urgent
Reason for Study: Other
Other Reason for Exam: Possible Stroke
Bedside Glucose- Treatment ONCE
Cardiac Monitoring- Treatment ONCE
IV Insert/Care/Rem.- Treatment PRN
Vital Signs As Directed
Frequency: Other
Weight As Directed
Frequency: Once
Comment: ZERO STRETCHER SCALE FOR ACCURATE WEIGHT
O2 Therapy [RESP] Urgent
Titrate/Wean O2 to maintain O2 sat greater than (%): 93
Special Instructions: MAINTAIN CONTINUOUS O2 SATS > OR = 93%
01/09/25 06:16
EKG- Treatment ONCE
01/09/25 06:17
CT HEAD STROKE ALERT W/o Cont Urgent
Comment:
Reason For Exam: dizziness, hx stroke
CT HEAD/NECK ANG STROKE ALERT Urgent
Comment:
Reason For Exam: dizzy, hx stroke
Complete Blood Count/With Diff Urgent
Comprehensive Metabolic Panel Urgent
PTT Urgent
Prothrombin Time Urgent
Troponin I Urgent
Abnormal Lab Results
01/09/25 01/09/25
06:16 06:17
RBC 4.51 L 10^6/uL
(4.70-6.10)
RDW 15.3 H %
(11.5-14.5)
Absolute Neuts (auto) 6.6 H 10^3/uL
(1.4-6.5)
Absolute Lymphs (auto) 0.7 L 10^3/uL
(1.2-3.4)
Absolute Monos (auto) 0.7 H 10^3/uL
(0.1-0.6)
Neutrophils % 81.4 H %
(42.2-75.2)
Lymphocytes % 8.4 L %
(20.5-51.1)
APTT 23.1 L Sec
(23.4-35.0)
Chloride 110 H mmol/L
(98-107)
BUN 29 H mg/dl
(9-20)
Glucose 148 H mg/dl
(70-99)
Total Protein 5.5 L g/dl
(6.3-8.2)
POC Glucose 143 H mg/dl
(70-99)
01/09/25 06:17
01/09/25 06:17
Vital Signs
Initial and Last Documented VS:
Initial Vital Signs
Resp
18
01/09/25 06:08
Last Documented Vital Signs
Pulse Resp BP Pulse Ox
59 22 119/63 96
01/09/25 11:00 01/09/25 11:00 01/09/25 11:00 01/09/25 11:00
MDM/Problems Addressed
MDM/Problems Addressed:
84-year-old male with history of myasthenia gravis and cerebellar stroke presenting for dizziness since 3 AM when patient woke up. Vital signs on arrival significant for high blood pressure.
On exam, patient in no acute distress, however is holding his eyes closed secondary to his dizziness. Patient notes that his symptoms feel very similar to time when he had a cerebellar stroke. Stroke alert was called. However, patient reports
that he last felt normal when he went to sleep last night. At this time given onset of symptoms and time of presentation, not TNK candidate. NIH stroke scale at this time is a 0. Patient does have horizontal nystagmus bilaterally, with
abnormality to the left eye with apparent intraocular ophthalmoplegia, suspect to be secondary to underlying myasthenia gravis. Plan for CT and CT angio discussion with neurology. Patient follows with neurology. Patient had been seen in August
2024 for again similar symptoms, thought to be secondary to his myasthenia gravis, which time he was started on his pain medication. May need additional dosing of steroids.
09:00 -CT without acute process. Shows chronic findings. Discussed with neurology, recommends holding off changing any steroids at this time, may interfere with myasthenia. Plan for admission. Patient notes that he is feeling slightly better.
May need MRI versus medication adjustment
11:40 -neurology to bedside, notes that patient is now feeling much better. Suspects that his myasthenia is stable and possible recrudescence of prior stroke. Suspect possible vertiginous component versus GI bug with concomitant retching and dry
heaving on symptom onset. He feels that patient is stable for discharge with outpatient neurologic follow-up and Zofran. Return precautions discussed.
*Pulse Oximetry
Patient hypoxic: no
*EKG
Interpreted by ED Provider?: Yes
EKG Intrepretation Date: 01/09/25
EKG Intrepretation Time: 06:48
Interpretation: abnormal
Comparison EKG: no changes (10/31/24)
Heart Rate: 69
Rate: normal
Rhythm: sinus
QRS Pattern: right bundle branch block and other (left anterior fascicular block)
Ischemia: no ischemia
*Critical Care Note
Total Time (30-74mins, 75-104mins- exclusive of procedures): Not Applicable
ED Attending Note
-
Portions of this chart may have been created with voice recognition software.� Occasional wrong word or��sound alike� substitutions may have occurred due to the inherent limitations of voice recognition software.
Discharge Plan
Departure
Patient Disposition: Admit
Date of Disposition: 01/09/25
Time of Disposition: 09:38
Presentation/result/management discussed w/ accepting MD/DO: Hospitalist
Condition: Fair
Discharge Problem:
Dizziness, Myasthenia gravis
Prescriptions:
No Action
losartan 50 mg tablet
50 mg PO DAILY
atorvastatin 80 mg tablet
80 mg PO DAILY
aspirin 81 mg Tablet,Delayed Release (Dr/Ec)
81 mg PO DAILY
tamsulosin 0.4 mg capsule
0.4 mg PO HS
dutasteride 0.5 mg capsule
0.5 mg PO HS
therapeutic multivitamin Tablet
1 tab PO DAILY
ascorbic acid (vitamin C) [Vitamin C] 500 mg Tablet
500 mg PO DAILY
turmeric 400 mg Capsule
400 mg PO DAILY
prednisone 1 mg Tablet
4 mg PO DAILY
Octagam 10 % solution
800 ml IV MONTHLY
Patient Comments:
dose given in ER 3/10
Brilinta 90 mg Tablet
90 mg PO BID Qty: 60 5RF
Referrals:
UNKNOWN - PT DOES,NOT KNOW [Family Provider]
Interventions
Interventions:
*Risk Screen - Suicide Last Done: 01/09/25 07:08
*General Assessment Last Done: 01/09/25 07:08
*Neglect/Abuse Screening Last Done: 01/09/25 07:08
*ED- Fall Risk Assessment Last Done: 01/09/25 07:08
*ED COVID-19 Vaccine History Last Done: 01/09/25 07:08
ED- Neurological Assessment Last Done: 01/09/25 07:00
ED Swallowing Screen Last Done: 01/09/25 07:44
Discharge Date and Time
Print Language: TAJIK
[2025-01-09 06:42] LABS: Hematocrit 40.5 % (39.0-52.0); Hemoglobin 13.7 g/dL (13.0-18.0); Mean Corp Hgb Conc. 33.8 g/dL (33.0-37.0); Mean Corpuscular Volume 89.8 fL (80.0-94.0); Nucleated Red Blood Cells % 0 % (-); Platelet Count 206 10^3/uL (130-400); Red Cell Dist. Width 15.3 % (11.5-14.5)
[2025-01-09 06:47] LABS: APTT 23.1 Sec (23.4-35.0); INR 1.11; PT 14.6 Sec (11.4-14.6)
[2025-01-09 07:00] VITALS: BP 121/57
[2025-01-09 07:03] LABS: Troponin I 0.015 ng/ml
[2025-01-09 07:44] LABS: ALT (SGPT) 25 U/L (0-50); AST (SGOT) 26 U/L (17-59); Albumin 3.8 g/dl (3.5-5.0); Alkaline Phosphatase 68 U/L (38-126); Blood Urea Nitrogen 29 mg/dl (9-20); Calcium 9.1 mg/dl (8.4-10.2); Carbon Dioxide 23 mmol/L (22-30); Chloride 110 mmol/L (98-107); Glucose 148 mg/dl (70-99); Potassium 4.0 mmol/L (3.5-5.1); Sodium 139 mmol/L (135-145); Total Protein 5.5 g/dl (6.3-8.2); eGFR > 60.00
[2025-01-09 08:00] VITALS: BP 114/64
[2025-01-09 09:00] VITALS: BP 112/65
[2025-01-09 10:00] VITALS: BP 123/61
[2025-01-09 11:00] VITALS: BP 119/63
--- NOTE | 2025-01-09 18:29 | CON.NEURO ---
Neuro Assessment/Plan
Assessment
84 year old man with dizziness, probably recrudescence of stroke in the setting of mild GI illness, resolved with zofran
strength is good and myesthenia is stable.
ok to d/c home zofran PRN
Consultation
Order
Date of Consultation: 01/09/25
Requesting Provider: Carmen Salazar
Reason for Consult: dizziness
Subjective/Objective
Subjective Data
Date of Service: January 09, 2025
from ED notes:
84-year-old male with history of myasthenia gravis on Rozanoxizumab and history of cerebellar stroke presenting to the emergency department for dizziness. Patient reports that he woke up around 3 AM this morning to go to the bathroom and felt
dizzy. He notes that the dizziness is prominent anytime that he opens his eyes. Notes very similar symptoms in 2021, which time he was diagnosed with a stroke. Patient had also been seen in August for similar symptoms, which was thought to be
secondary to his myasthenia gravis. Patient had previously been on IVIG, and has since been switched to the Rozanoxizumab. His last dose was on . He also is on 4 mg of prednisone daily. He denies weakness or numbness to his extremities.
He reports that he felt normal when he went to bed at midnight. He was administered Valium and Zofran by medics. Denies chest pain or difficulty breathing. Denies changes in his vision. Denies additional acute medical complaints
I saw him in August for dizziness, recrudescence of prior stroke, due to MG exacerbation because he was late on IVIG. He switched to Rystiggo and it works much better than IVIG and he feels much stronger. He reports dizziness and dry heaving resolved
after getting zofran in the ambulance.
Objective Data
Vital Signs
Pulse Resp BP Pulse Ox
59 22 119/63 96
01/09/25 11:00 01/09/25 11:00 01/09/25 11:00 01/09/25 11:00
Lab Results
01/09/25 06:17
01/09/25 06:17
PT 14.6 Sec (11.4-14.6) 01/09/25 06:17
INR 1.11 01/09/25 06:17
APTT 23.1 Sec (23.4-35.0) L 01/09/25 06:17
Sodium 139 mmol/L (135-145) 01/09/25 06:17
Potassium 4.0 mmol/L (3.5-5.1) 01/09/25 06:17
BUN 29 mg/dl (9-20) H 01/09/25 06:17
Glucose 148 mg/dl (70-99) H 01/09/25 06:17
Calcium 9.1 mg/dl (8.4-10.2) 01/09/25 06:17
Patient Allergies
clopidogrel (From Plavix) Allergy (Intermediate, Verified 08/31/24 15:32)
Rash
Physical Exam
-
AAOx3, speech clear, language intact
VFF, EOMI, a few beats nonsustained nystagmus bilaterally, face symmetric
Arlette hallpike negative
full strength
Medications
-
Home Medications
�Medication �Instructions �Recorded
aspirin 81 mg tablet,delayed 81 mg PO DAILY Blood clot 03/17/22
release prevention/tx
atorvastatin 80 mg tablet 80 mg PO DAILY High cholesterol 03/17/22
dutasteride 0.5 mg capsule 0.5 mg PO HS Urinary issue 03/17/22
losartan 50 mg tablet 50 mg PO DAILY Blood pressure 03/17/22
tamsulosin 0.4 mg capsule 0.4 mg PO HS Urinary issue 03/17/22
ascorbic acid (vitamin C) 500 mg 500 mg PO DAILY 08/31/24
tablet (Vitamin C)
immune glob,gamm(IgG)10 %-malt-IgA 800 ml IV MONTHLY 08/31/24
over 50 mcg/mL intravenous
solution (Octagam)
prednisone 1 mg tablet 4 mg PO DAILY 08/31/24
therapeutic multivitamin 1 tab PO DAILY 08/31/24
turmeric 400 mg capsule 400 mg PO DAILY 08/31/24
ticagrelor 90 mg tablet (Brilinta) 90 mg PO BID CVA prevention #60 09/02/24
tabs
ondansetron 4 mg disintegrating 4 mg PO TIDPRN PRN nausea/vomiting 01/09/25
tablet #6 tabs
== END 2025-01-09 11:45 | disposition home or self-care (01) ==
LOC: EMR 06:04
PROVIDERS: EMERGENCY PHYSICIAN Student in an Organized Health Care Education/Training Program; OTHER PHYSICIAN Psychiatry & Neurology Clinical Neurophysiology
DX: R42 Dizziness and giddiness (principal); G70.00 Myasthenia gravis without (acute) exacerbation; I45.2 Bifascicular block; H55.09 Other forms of nystagmus; I10 Essential (primary) hypertension; Z86.73 Personal history of transient ischemic attack (TIA), and cerebral infarction without residual deficits; Z79.899 Other long term (current) drug therapy; Z79.52 Long term (current) use of systemic steroids; Z88.8 Allergy status to other drugs, medicaments and biological substances
CPT/HCPCS: 99285; 70450; 70496; 70498; 80053; 82962; 84484; 85025; 85610; 85730; 93005; Q9967